=== PATIENT | male | born 1940 | race Caucasian/White ===

== ENCOUNTER 2016-07-13 09:19 | Day surgery (SDC) | payer MEDICARE, OTHER ==
[~2016-07-13 09:19] MED LIST: Lactated Ringers 1,000 ML IV SCH; Sodium Chloride 0.9% 5 ML Syringe FLUSH PRN
[2016-07-13] MEDS ORDERED: fentaNYL 100 MCG/2 ML SDV ONE (09:30)
[2016-07-13] MEDS ORDERED: Midazolam 1 MG/ML 2 ML SDV ONE (09:30)
[2016-07-13] MEDS ORDERED: Propofol 200 MG/20 ML SDV ONE (09:30)
[2016-07-13] MEDS ORDERED: EPINEPHrine 1:10,000 1 MG/10 ML Syringe ONE ×2 (09:58→11:30)
[2016-07-13] MEDS ORDERED: Propofol 200 MG/20 ML SDV IV ONE (11:00)
[2016-07-13] MEDS ORDERED: fentaNYL 100 MCG/2 ML SDV IV ONE (11:00)
[2016-07-13] MEDS ORDERED: Midazolam 1 MG/ML 2 ML SDV IV ONE (11:00)
--- NOTE | 2016-07-13 11:36 | PCM.OPNOTE ---
- General Post-Op/Procedure Note Date of Surgery/Procedure: 07/13/16 Operative Procedure(s): Preoperative diagnosis in this patient is dysphagia. Postop diagnosis is definite irregularity at the lower end of the esophagus. Have to rule out extrinsic pressure in this area. Primary Surgeon: Cody Finnegan Condition: Good Free Text/Narrative:: Preoperative diagnosis: Dysphagia Postoperative diagnosis: This irregularity at the lower end of the esophagus. It appears to be a narrowing. This narrowing could be caused from extrinsic pressure as the mucosa was smooth. Biopsy was taken. Procedure performed: Upper endoscopy and biopsies of the lower end of the esophagus. Informed consent was obtained from the patient regarding this procedure. All possible complications were thoroughly discussed. Using continuous EKG and oximetry monitoring and intermittent blood pressure and respiratory rate, and Olympus video gastroscope was introduced at the mouth and advanced all the way to the orifice. The upper and middle esophagus were normal. at the lower end of the esophagus the esophagus was somewhat narrow most likely from extrinsic pressure. There was some slight mucosal irregularity also. Thisnew close to was friable. Biopsies were taken. The scope was gently passed through this area into the stomach. Small quantity of old blood was seen. The stomach itself was normal. The pyloric opening was slightly inflamed. The scope was passed through the pyloric opening into the first second and third parts of the duodenum which were normal. Retroflexion technique was employed and no additional findings were discovered. The air was aspirated and the scope was totally withdrawn after carefully examining area the biopsy. We did deposit 1cc of one is to 10, 000 epinephrine close this area to help with vasoconstriction. The patient is being sent for a CT scan to rule out an extrinsic pressure of this area
[2016-07-13 12:37] VITALS: BP 127/77
[2016-07-13] MEDS ORDERED: Iopamidol 612 MG/ML 75 ML Bottle IV ONE (13:43)
[2016-07-13] MEDS ORDERED: Sodium Chloride 0.9% 50 ML SDV FLUSH SCH (13:45)
== END 2016-07-13 14:00 | disposition home or self-care (01) ==
LOC: KA.SDS 09:19
PROVIDERS: ATTEND Family Medicine
DX: K22.8 Other specified diseases of esophagus (principal); I10 Essential (primary) hypertension; Z79.899 Other long term (current) drug therapy; E78.5 Hyperlipidemia, unspecified; G47.33 Obstructive sleep apnea (adult) (pediatric)
CPT/HCPCS: 00740; 43239; 71260; J0171; J2250; J2704; J3010; J7120; Q9967; 88305